=== PATIENT | male | born 1995 | race Caucasian/White ===

== ENCOUNTER 2019-10-10 01:14 | Emergency (ER) | payer OTHER ==
[~2019-10-10] VITALS: Ht 188 cm; Wt 104.3 kg
[2019-10-10] MEDS ORDERED: NEURONTIN 300M300 M2 PO (01:25)
[2019-10-10] MEDS ORDERED: LITE COAT ASPI325 MG PO (01:26)
[2019-10-10] MEDS ORDERED: SUPER THERAVIT1 EACH PO (01:27)
[2019-10-10] MEDS ORDERED: [UNRECOGNIZED DRUG - OTHER] PO (01:27)
[2019-10-10 02:33] LABS: ABSOLUTE EOSINOPHILS 0.3 thou/uL (0.0-0.7); ABSOLUTE LYMPHOCYTES 2.5 thou/uL (0.8-5.3); ABSOLUTE MONOCYTES 0.8 thou/uL (0.0-1.2); ABSOLUTE NEUTROPHILS 4.5 thou/uL (1.6-8.1); BASOPHILS 0.4 %; EOSINOPHILS 3.3 %; HEMATOCRIT 46.5 % (42.0-52.0); HEMOGLOBIN 15.6 gm/dL (14.0-18.0); LYMPHOCYTES 30.9 %; MCHC 33.6 g/dL (28.0-37.0); MCV 86.2 fL (80.0-100.0); MPV 10.8 fl. (7.2-11.1); NUCLEATED RBCS 0 /100WBC; PLATELET COUNT* 185 thou/uL (150-400); POLYS 55.4 %; RDW-CV 13.2 % (10.5-14.5); WBC 8.1 thou/uL (4.0-11.0)
[2019-10-10 02:47] LABS: CALCIUM 9.9 mg/dL (8.5-10.1); CREATININE 0.9 mg/dL (0.6-1.3); POTASSIUM 4.1 mmol/L (3.5-5.1)
[2019-10-10 02:51] LABS: ALBUMIN 4.1 g/dL (3.4-5.0); TOTAL BILIRUBIN 0.2 mg/dL (<0.1-1.0); TOTAL PROTEIN 7.5 g/dL (6.4-8.2)
[2019-10-10] MEDS ORDERED: BENTYL 20 MG TA20 M1 PO (04:32)
[2019-10-10] MEDS ORDERED: CARAFATE1 GM PO (04:32)
[2019-10-10] MEDS ORDERED: ULTRAM 50MG TAB50 MG PO (04:32)
[2019-10-10 04:41] VITALS: BP 142/87
== END 2019-10-10 04:42 | disposition home or self-care (01) ==
LOC: M.ERS 01:14
PROVIDERS: Personal Emergency Response Attendant
DX: R10.13 Epigastric pain (principal); Z88.1 Allergy status to other antibiotic agents; Z88.0 Allergy status to penicillin; Z88.8 Allergy status to other drugs, medicaments and biological substances